=== PATIENT | male | born 1970 ===

== ENCOUNTER → 2025-01-01 11:13 | Outpatient (REF) | payer BC, SELFPAY | LOC: RCS 11:13 | PROVIDERS: ATTENDING PHYSICIAN Internal Medicine Interventional Cardiology; FAMILY PHYSICIAN Physician Assistant Medical | DX: I25.5 Ischemic cardiomyopathy (principal); I25.10 Atherosclerotic heart disease of native coronary artery without angina pectoris | CPT/HCPCS: 78452; 93017; A9500; J2785 ==